=== PATIENT | male | born 1995 | race Caucasian/White ===

== ENCOUNTER 2021-04-11 20:16 | Inpatient (IN) | payer MEDICAID ==
[2021-04-11] MEDS ORDERED: Sodium Chloride 0.9% 10 ML Syringe FLUSH PRN (21:28)
[2021-04-11] MEDS ORDERED: Sodium Chloride 0.9% 1,000 ML IV SCH (21:30)
--- NOTE | 2021-04-11 22:36 | EDM.PDOC ---
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 The lesion started yesterday morning with a small area of redness and by yesterday evening was the size of about 4 cm x 2 cm with a central area raised. The patient reports he had a tick in this area of his leg a week earlier. The outlined the area of redness last evening and by this morning it had expanded to twice the area and started to develop black le sions in the middle worrisome for MRSA. They were seen in the clinic and started on doxycycline 100 mg twice daily for 14 days and initiated therapy but in that time to now the lesion continues to worsen with increased redness, tenderness, induration, and ever spreading dark vesicular lesions arising from the center of the redness. This is quite worrisome for MRSA versus Jovana's gangrene. The patient has been febrile with a temperature of 101.5 F and has had chills. 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 - Related Data Allergies Allergy/AdvReac Type Severity Reaction Status Date / Time No Known Allergies Allergy Verified 04/11/21 20:43 Home Meds: Home Meds Doxycycline Monohydrate [Mondoxyne Nl] 100 mg PO BID 04/11/21 [History] Past Medical History HEENT History: Reports: Impaired Vision - Infectious Disease History Infectious Disease History: Reports: Novel Coronavirus Social & Family History - Tobacco Use Tobacco Use Status *Q: Never Tobacco User ED ROS GENERAL - Review of Systems Review Of Systems: See Below Constitutional: Reports: Fever, Chills HEENT: Reports: No Symptoms Respiratory: Reports: No Symptoms Cardiovascular: Reports: No Symptoms Endocrine: Reports: No Symptoms GI/Abdominal: Reports: No Symptoms : Reports: No Symptoms Musculoskeletal: Reports: Joint Pain (Couple joints are now aching) Skin: Reports: Erythema, Lesions (Large erythematous lesions on the inner right thigh that have a central necrotic looking core worrisome for MRSA or Jovana's gangrene), Other (Patient reports that there may have been a tick attached to this area a week earlier.) Neurological: Reports: No Symptoms Psychiatric: Reports: No Symptoms Hematologic/Lymphatic: Reports: No Symptoms Immunologic: Reports: No Symptoms ED EXAM, SKIN/RASH Exam: See Below Exam Limited By: No Limitations General Appearance: Alert, Anxious, Mild Distress Eye Exam: Bilateral Eye: EOMI, PERRL Head: Atraumatic, Normocephalic Neck: Normal Inspection, Supple, Non-Tender, Full Range of Motion. No: Lymphadenopathy (R), Lymphadenopathy (L) Respiratory/Chest: No Respiratory Distress, Lungs Clear, Normal Breath Sounds Cardiovascular: Normal Peripheral Pulses, Regular Rate, Rhythm, No Murmur Extremities: Normal Inspection, Normal Range of Motion, Normal Capillary Refill Neurological: Alert, Oriented, Normal Cognition, No Motor/Sensory Deficits Skin: Erythema (Rapidly expanding area of erythema on the inner right thigh that has quadrupled in size in the last 24 hours. The area is indurated, hot, tender, the center of the lesions have a necrotic appearing core worrisome for either MRSA or Jovana's gangrene.), Increased Warmth Location, Skin: Lower Extremity, Right Characteristics: Maculopapular, Vesicular, Erythematous, Necrotic Associated features: Warmth, Tenderness, Swelling, Induration, Inflammation Lymphatic: No Adenopathy Course - Vital Signs Last Recorded V/S: Last Vital Signs Temp 38.6 C H 04/11/21 21:58 Pulse 92 04/11/21 21:56 Resp 17 04/11/21 21:56 BP 124/78 04/11/21 21:56 Pulse Ox 99 04/11/21 21:56 - Orders/Labs/Meds Orders: Active Orders 24 hr Category Date Time Status BABESIA MICROTI ANTIBODY PANEL Urgent Lab 04/11/21 21:37 Received CULTURE BLOOD [BC] Urgent Lab 04/11/21 21:37 Received CULTURE BLOOD [BC] Urgent Lab 04/11/21 21:46 Received HUMAN GRANULOCYTIC ANGELA-HGE Urgent Lab 04/11/21 21:37 Received LYME ANTIBODIES IGG/IGM [CHEM] Stat Lab 04/11/21 21:37 Received Sodium Chloride 0.9% [Normal Saline] 1,000 ml Med 04/11/21 21:30 Active IV ASDIRECTED Sodium Chloride 0.9% [Saline Flush] Med 04/11/21 21:28 Active 10 ml FLUSH ASDIRECTED PRN Vancomycin 1.5 gm Med 04/11/21 21:30 Active Sodium Chloride 0.9% [Normal Saline] 250 ml IV ONETIME Blood Culture x2 Reflex Set [OM.PC] Urgent Oth 04/11/21 21:29 Ordered Saline Lock Insert [OM.PC] Routine Oth 04/11/21 21:28 Ordered Medication Orders Sodium Chloride (Normal Saline) 1,000 mls @ 999 mls/hr IV ASDIRECTED RADHA Last Admin: 04/11/21 21:53 Dose: 999 mls/hr Documented by: DAMION Vancomycin HCl 1.5 gm/ Sodium (Chloride) 250 mls @ 150 mls/hr IV ONETIME STA Stop: 04/11/21 23:09 Last Admin: 04/11/21 22:20 Dose: 150 mls/hr Documented by: DAMION Sodium Chloride (Sodium Chloride 0.9% 10 Ml Syringe) 10 ml FLUSH ASDIRECTED PRN PRN Reason: Keep Vein Open Last Admin: 04/11/21 21:53 Dose: 10 ml Documented by: DAMION Labs: Laboratory Tests 04/11/21 04/11/21 04/11/21 Range/Units 21:37 21:37 21:37 WBC 9.2 (4.5-11.0) K/uL RBC 4.62 (4.30-5.90) M/uL Hgb 14.4 (12.0-15.0) g/dL Hct 41.7 (40.0-54.0) % MCV 90 (80-98) fL MCH 31 (27-31) pg MCHC 35 (32-36) % Plt Count 211 (150-400) K/uL Neut % (Auto) 74.7 H (36-66) % Lymph % (Auto) 11.2 L (24-44) % [place] % (Auto) 13.8 H (2-6) % Eos % (Auto) 0.1 L (2-4) % Baso % (Auto) 0.2 (0-1) % Sodium 140 (140-148) mmol/L Potassium 3.8 (3.6-5.2) mmol/L Chloride 102 (100-108) mmol/L Carbon Dioxide 26 (21-32) mmol/L Anion Gap 11.9 (5.0-14.0) mmol/L BUN 12 (7-18) mg/dL Creatinine 1.1 (0.8-1.3) mg/dL Est Cr Clr Drug Dosing 109.34 mL/min Estimated GFR (MDRD) > 60 (>60) Glucose 90 (74-106) mg/dL Lactic Acid 1.1 (0.4-2.0) mmol/L Calcium 8.8 (8.5-10.1) mg/dL Total Bilirubin 0.8 (0.2-1.0) mg/dL AST 25 (15-37) U/L ALT 34 (12-78) U/L Alkaline Phosphatase 74 (46-116) U/L C-Reactive Protein 2.17 H (0.0-0.3) mg/dL Total Protein 7.5 (6.4-8.2) g/dL Albumin 4.1 (3.4-5.0) g/dL Globulin 3.4 (2.3-3.5) g/dL Albumin/Globulin Ratio 1.2 (1.2-2.2) Meds: Medications Generic Name Dose Route Start Last Admin Trade Name Freq PRN Reason Stop Dose Admin Sodium Chloride 1,000 mls @ 999 mls/hr 04/11/21 21:30 04/11/21 21:53 Normal Saline IV 999 mls/hr ASDIRECTED RADHA Administration Vancomycin HCl 1.5 gm/ Sodium 250 mls @ 150 mls/hr 04/11/21 21:30 04/11/21 22:20 Chloride IV 04/11/21 23:09 150 mls/hr ONETIME STA Administration Sodium Chloride 10 ml 04/11/21 21:28 04/11/21 21:53 Sodium Chloride 0.9% 10 Ml Syringe FLUSH 10 ml ASDIRECTED PRN Administration Keep Vein Open - Re-Assessments/Exams Free Text/Narrative Re-Assessment/Exam: 04/11/21 22:56 viewed the patient's labs showing a normal CBC with a leukocyte count of 9.2. His comprehensive metabolic panel is normal with the exception of a creatinine of 1.1. His CRP is elevated at 2.17 and his venous lactate is 1.1. Because of the rapidly expanding lesion on the inner thigh, we initiated vancomycin 1500 mg IV and meropenem 1 g IV. We will admit the patient for close observation of this wound and continued IV antibiotics given the rapid expanding size of the lesion. I do have a tick panel still pending as well as blood cultures. I discussed the case with Samara Pedro CNP who has agreed to admit the patient for further care. Patient and his are also in agreement with this plan. Departure - Departure Time of Disposition: 22:58 Disposition: Admitted As Inpatient 67 Clinical Impression: Cellulitis of right thigh, Multiple-resistant Staphylococcus aureus infection - Discharge Information Referrals: Yumi Scherer MD [Primary Care Provider] - Forms: ED Department Discharge Sepsis Event Note (ED) - Evaluation Sepsis Screening Result: Possible Sepsis Risk - Focused Exam Vital Signs: Vital Signs Temp Pulse Resp BP Pulse Ox 04/11/21 21:58 38.6 C H 04/11/21 21:56 92 17 124/78 99 04/11/21 20:46 38.6 C H 108 H 22 H 135/69 100 04/11/21 20:36 38.6 C H 108 H 22 H 135/69 100 - Problem List & Annotations (1) Cellulitis of right thigh SNOMED Code(s): 00333695847276228 Code(s): L03.115 - CELLULITIS OF RIGHT LOWER LIMB Status: Acute Priority: Medium Current Visit: Yes (2) Multiple-resistant Staphylococcus aureus infection SNOMED Code(s): 828234598 Code(s): B95.7 - OTH STAPHYLOCOCCUS THE CAUSE OF DISEASES CLASSD [id number] Status: Acute Priority: Medium Current Visit: Yes - Problem List Review Problem List Initiated/Reviewed/Updated: Yes - My Orders Last 24 Hours: My Active Orders 04/11/21 21:28 Sodium Chloride 0.9% [Saline Flush] 10 ml FLUSH ASDIRECTED PRN Saline Lock Insert [OM.PC] Routine 04/11/21 21:29 Blood Culture x2 Reflex Set [OM.PC] Urgent 04/11/21 21:30 Sodium Chloride 0.9% [Normal Saline] 1,000 ml IV ASDIRECTED Vancomycin 1.5 gm Sodium Chloride 0.9% [Normal Saline] 250 ml IV ONETIME 04/11/21 21:37 BABESIA MICROTI ANTIBODY PANEL Urgent CULTURE BLOOD [BC] Urgent HUMAN GRANULOCYTIC ANGELA-HGE Urgent LYME ANTIBODIES IGG/IGM [CHEM] Stat 04/11/21 21:46 CULTURE BLOOD [BC] Urgent - Assessment/Plan Last 24 Hours: My Active Orders 04/11/21 21:28 Sodium Chloride 0.9% [Saline Flush] 10 ml FLUSH ASDIRECTED PRN Saline Lock Insert [OM.PC] Routine 04/11/21 21:29 Blood Culture x2 Reflex Set [OM.PC] Urgent 04/11/21 21:30 Sodium Chloride 0.9% [Normal Saline] 1,000 ml IV ASDIRECTED Vancomycin 1.5 gm Sodium Chloride 0.9% [Normal Saline] 250 ml IV ONETIME 04/11/21 21:37 BABESIA MICROTI ANTIBODY PANEL Urgent CULTURE BLOOD [BC] Urgent HUMAN GRANULOCYTIC ANGELA-HGE Urgent LYME ANTIBODIES IGG/IGM [CHEM] Stat 04/11/21 21:46 CULTURE BLOOD [BC] Urgent
[2021-04-11] MEDS ORDERED: Meropenem 1 GM in Sodium Chloride 0.9% 100 ML IV ONE (22:59)
--- NOTE | 2021-04-11 23:24 | PCM.HP.2 ---
H&P History of Present Illness - General Date of Service: 04/11/21 Admit Problem/Dx: Admission Diagnosis/Problem Admission Diagnosis/Problem Cellulitis of thigh Source of Information: Patient, Family () History Limitations: Reports: No Limitations - History of Present Illness Initial Comments - Free Text/Narative: Chief Complaint: skin infection right upper thigh is getting worse. 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 The lesion started yesterday morning with a small area of redness and by yesterday evening was the size of about 4 cm x 2 cm with a central area raised. The patient reports he had a tick in this area of his leg a week earlier. The outlined the area of redness last evening and by this morning it had expanded to twice the area and started to develop black lesions in the middle worrisome for MRSA. They were seen in the clinic and started on doxycycline 100 mg twice daily for 14 days and initiated therapy but in that time to now the lesion continues to worsen with increased redness, tenderness, induration, and ever spreading dark vesicular lesions arising from the center of the redness. This is quite worrisome for MRSA versus Jovana's gangrene. The patient has been febrile with a temperature of 101.5 F and has had chills. 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 Symptom Onset Date: 04/09/21 (48 hours of symptoms) Duration of Symptoms: Reports: Day(s):, Getting Worse Location: Reports: Lower Extremity, Right Quality: Reports: Ache, Dull Severity: Moderate Improves with: Reports: None Worsens with: Reports: None Context: Reports: Other (abscess cellulitis of right upper thigh) Associated Symptoms: Reports: Fever/Chills, Other (painful walking) - Related Data Allergies/Adverse Reactions: Allergies Allergy/AdvReac Type Severity Reaction Status Date / Time No Known Allergies Allergy Verified 04/11/21 20:43 Home Medications: Home Meds Doxycycline Monohydrate [Mondoxyne Nl] 100 mg PO BID 04/11/21 [History] Past Medical History HEENT History: Reports: Impaired Vision - Infectious Disease History Infectious Disease History: Reports: Novel Coronavirus Social & Family History - Tobacco Use Tobacco Use Status *Q: Never Tobacco User - Living Situation & Occupation Living situation: Reports: Occupation: Employed ( and 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 and 7 months, lives in [place], [place].) H&P Review of Systems - Review of Systems: Review Of Systems: See Below General: Reports: Fever, Chills, Malaise HEENT: Reports: No Symptoms Pulmonary: Reports: No Symptoms Cardiovascular: Reports: No Symptoms Gastrointestinal: Reports: No Symptoms Genitourinary: Reports: No Symptoms Musculoskeletal: Reports: Leg Pain (right upper thigh) Skin: Reports: Erythema, Wound, Change in Color Psychiatric: Reports: No Symptoms Neurological: Reports: No Symptoms Hematologic/Lymphatic: Reports: No Symptoms Immunologic: Reports: No Symptoms Exam - Exam Exam: See Below - Vital Signs Vital Signs: Last Vital Signs Temp 101.5 F H 04/11/21 21:58 Pulse 92 04/11/21 21:56 Resp 17 04/11/21 21:56 BP 124/78 04/11/21 21:56 Pulse Ox 99 04/11/21 21:56 Weight: 207 lb 3.752 oz - Exam Quality Assessment: DVT Prophylaxis General: Alert, Oriented, Cooperative, Mild Distress, Other (neat and well groomed. pleasant and polite, at bedside.) HEENT: PERRLA, Hearing Intact, Mucosa Moist & Pottery Addition, Nares Patent, Normal Nasal Septum, Posterior Pharynx Clear, Conjunctiva Clear, EOMI, EACs Clear, TMs Clear Neck: Supple, Trachea Midline, 2 Lungs: Clear to Auscultation, Normal Respiratory Effort Cardiovascular: Regular Rate, Regular Rhythm, Normal S1, Normal S2 GI/Abdominal Exam: Normal Bowel Sounds, Soft, Non-Tender, No Organomegaly, No Distention, No Abnormal Bruit, No Mass, Pelvis Stable (Male) Exam: No Hernia, Normal Inspection, Circumcised, Other (two testes equal shape and size, no tenderness noted, pea size lymph nodes noted to the bilateral groin. ) Rectal (Males) Exam: Deferred Back Exam: Normal Inspection, Full Range of Motion, NT Extremities: Leg Pain (right upper thigh with large red firm lesion with 2 black circular areas . area is marked this morning and has expanded about 2cm outside of the borders. not draining, pain with light palpation of abscess. ), Increased Warmth (right upper thight), Redness (right upper thight) Skin: Warm, Dry, Petechia (right upper thigh with large area of redness, pain, warm to touch. not draining at this time), Ecchymosis, Wound Neurological: Normal Speech. No: Normal Gait (limping into the ER) Neuro Extensive - Mental Status: Alert, Oriented x3, Normal Mood/Affect, Normal Cognition Psychiatric: Alert, Normal Affect, Normal Mood - Patient Data Lab Results Last 24 hrs: Laboratory Results - last 24 hr 04/11/21 04/11/21 04/11/21 Range/Units 21:37 21:37 21:37 WBC 9.2 (4.5-11.0) K/uL RBC 4.62 (4.30-5.90) M/uL Hgb 14.4 (12.0-15.0) g/dL Hct 41.7 (40.0-54.0) % MCV 90 (80-98) fL MCH 31 (27-31) pg MCHC 35 (32-36) % Plt Count 211 (150-400) K/uL Neut % (Auto) 74.7 H (36-66) % Lymph % (Auto) 11.2 L (24-44) % [place] % (Auto) 13.8 H (2-6) % Eos % (Auto) 0.1 L (2-4) % Baso % (Auto) 0.2 (0-1) % Sodium 140 (140-148) mmol/L Potassium 3.8 (3.6-5.2) mmol/L Chloride 102 (100-108) mmol/L Carbon Dioxide 26 (21-32) mmol/L Anion Gap 11.9 (5.0-14.0) mmol/L BUN 12 (7-18) mg/dL Creatinine 1.1 (0.8-1.3) mg/dL Est Cr Clr Drug Dosing 109.34 mL/min Estimated GFR (MDRD) > 60 (>60) Glucose 90 (74-106) mg/dL Lactic Acid (0.4-2.0) mmol/L Calcium 8.8 (8.5-10.1) mg/dL Total Bilirubin 0.8 (0.2-1.0) mg/dL AST 25 (15-37) U/L ALT 34 (12-78) U/L Alkaline Phosphatase 74 (46-116) U/L C-Reactive Protein 2.17 H (0.0-0.3) mg/dL Total Protein 7.5 (6.4-8.2) g/dL Albumin 4.1 (3.4-5.0) g/dL Globulin 3.4 (2.3-3.5) g/dL Albumin/Globulin Ratio 1.2 (1.2-2.2) Lyme Disease IgG Ab Negative (Negative) Lyme Disease IgM Ab Negative (Negative) 04/11/21 Range/Units 21:37 WBC (4.5-11.0) K/uL RBC (4.30-5.90) M/uL Hgb (12.0-15.0) g/dL Hct (40.0-54.0) % MCV (80-98) fL MCH (27-31) pg MCHC (32-36) % Plt Count (150-400) K/uL Neut % (Auto) (36-66) % Lymph % (Auto) (24-44) % [place] % (Auto) (2-6) % Eos % (Auto) (2-4) % Baso % (Auto) (0-1) % Sodium (140-148) mmol/L Potassium (3.6-5.2) mmol/L Chloride (100-108) mmol/L Carbon Dioxide (21-32) mmol/L Anion Gap (5.0-14.0) mmol/L BUN (7-18) mg/dL Creatinine (0.8-1.3) mg/dL Est Cr Clr Drug Dosing mL/min Estimated GFR (MDRD) (>60) Glucose (74-106) mg/dL Lactic Acid 1.1 (0.4-2.0) mmol/L Calcium (8.5-10.1) mg/dL Total Bilirubin (0.2-1.0) mg/dL AST (15-37) U/L ALT (12-78) U/L Alkaline Phosphatase (46-116) U/L C-Reactive Protein (0.0-0.3) mg/dL Total Protein (6.4-8.2) g/dL Albumin (3.4-5.0) g/dL Globulin (2.3-3.5) g/dL Albumin/Globulin Ratio (1.2-2.2) Lyme Disease IgG Ab (Negative) Lyme Disease IgM Ab (Negative) Result Diagrams: 04/11/21 21:37 04/11/21 21:37 Sepsis Event Note - Evaluation Sepsis Screening Result: Possible Sepsis Risk - Focused Exam Vital Signs: Vital Signs Temp Pulse Resp BP Pulse Ox 04/11/21 21:58 101.5 F H 04/11/21 21:56 92 17 124/78 99 04/11/21 20:46 101.5 F H 108 H 22 H 135/69 100 04/11/21 20:36 101.5 F H 108 H 22 H 135/69 100 - Problem List (1) Cellulitis of right thigh SNOMED Code(s): 77592249207827402 ICD Code: L03.115 - CELLULITIS OF RIGHT LOWER LIMB Status: Acute Current Visit: Yes Problem List Initiated/Reviewed/Updated: Yes Orders Last 24hrs: Active Orders 24 hr Category Date Time Status Patient Status Manage Transfer [TRANSFER] Routine ADT 04/11/21 23:06 Ordered BABESIA MICROTI ANTIBODY PANEL Urgent Lab 04/11/21 21:37 Received CULTURE BLOOD [BC] Urgent Lab 04/11/21 21:37 Received CULTURE BLOOD [BC] Urgent Lab 04/11/21 21:46 Received HUMAN GRANULOCYTIC ANGELA-HGE Urgent Lab 04/11/21 21:37 Received Meropenem [Merrem] 1 gm Med 04/11/21 22:59 Active Sodium Chloride 0.9% [Normal Saline] 100 ml IV ONETIME Sodium Chloride 0.9% [Normal Saline] 1,000 ml Med 04/11/21 21:30 Active IV ASDIRECTED Sodium Chloride 0.9% [Saline Flush] Med 04/11/21 21:28 Active 10 ml FLUSH ASDIRECTED PRN Blood Culture x2 Reflex Set [OM.PC] Urgent Oth 04/11/21 21:29 Ordered Saline Lock Insert [OM.PC] Routine Oth 04/11/21 21:28 Ordered Resuscitation Status Routine Resus Stat 04/11/21 23:08 Ordered Medication Orders Sodium Chloride (Normal Saline) 1,000 mls @ 999 mls/hr IV ASDIRECTED RADHA Last Admin: 04/11/21 21:53 Dose: 999 mls/hr Documented by: DAMION Meropenem 1 gm/ Sodium (Chloride) 100 mls @ 200 mls/hr IV ONETIME ONE Stop: 04/11/21 23:28 Sodium Chloride (Sodium Chloride 0.9% 10 Ml Syringe) 10 ml FLUSH ASDIRECTED PRN PRN Reason: Keep Vein Open Last Admin: 04/11/21 21:53 Dose: 10 ml Documented by: DAMION Assessment/Plan Comment:: Assessment/Plan Comment:: ASSESSMENT AND PLAN OF CARE Cellulits of the right upper thigh, fever of 101.5 This is a 26 year old male present to the ER with his , reports about 2 days ago noticed a red spot on the thigh-like a pink fingerprint- this quickly got red, painful, and expanded with two central black dot. He was seen in [facility] and started on Doxy - he took two doses but this evening he had fever, chills, increased in size of redness outside of borders. This is the first time this has happen. No other family members with similar rash. 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 ER workup shows WBC 9.2, hgb 14.4, hct 41.7, platelets 211, F Chemistry Na+ 140, K+ 3.58 cl 102, anion gap 11.9, BUN 12, Cr 1.1, glucose 90, blood cultures X2 pending. Lactic acid 1.1, CRP2.17 Medication given IV Vancomycin 1.5 gram, IV Meropenem, IV fluids in ER. Plan to hospital for further care and treatment. agree with plan of care. Cellulitis of right upper thigh- x 48 hours -Admit to [address] [place] [address] for further monitoring -IV Fluids for rehydration NS at 125 mL per hour -IV Antibiotic Vancomycin 1.5 gram IV every 12 hours -IV Antibiotic Meropenem 1 gram every 8 hours -Lovenox 40 mg subcut daily -oxygen to keep sats greater than 95% -Advise to notify nurses of any chest pain or other symptoms -blood cultures x2 pending -And a.m. labs: CBC, BMP, CRP Maintenance issues -Orders home meds: no chronic medication -Nutrition - regular -Haskins catheter -not indicated at this time -DVT: Lovenox 40 mg subcut -PPI; IV Protonix 40mg daily CODE STATUS: FULL Admission status: Admit to [address] [place] [address] Admission justification. This patient will be admitted for inpatient services and is medically appropriate meeting medical necessity for inpatient admission as outlined in my documentation. I reasonably expect the patient will require inpatient services that span. Time over 2 midnights. I reasonably expect this patient to be discharged or transferred within 96 hours after admission to the [facility]. Disposition: home with Primary care provider: [facility] Hospitalist: Dr. Davidson - Mortality Measure Prognosis:: Good
[2021-04-11] MEDS ORDERED: Docusate Sodium 100 MG Cap PO PRN (23:43)
[2021-04-11] MEDS ORDERED: Morphine 2 MG/ML SYRINGE IVPUSH PRN (23:43)
[2021-04-11] MEDS ORDERED: Ketorolac 30 MG/ML SDV IVPUSH PRN (23:43)
[2021-04-11] MEDS ORDERED: Ondansetron 4 MG Tab.DIS PO PRN (23:43)
[2021-04-11] MEDS ORDERED: Acetaminophen/HYDROcodone 325-5 MG Tab PO PRN (23:43)
[2021-04-11] MEDS ORDERED: Ondansetron 4 MG/2 ML SDV IV PRN (23:43)
[2021-04-11] MEDS ORDERED: Albuterol 0.083% 2.5 MG/3 ML Neb Soln NEB PRN (23:43)
[2021-04-11] MEDS: Acetaminophen 325 MG Tab PO PRN (23:57)
[2021-04-12] MEDS: Sodium Chloride 0.9% 1,000 ML IV SCH ×3 (00:32→20:13)
[2021-04-12] MEDS: Ibuprofen 800 MG Tab PO PRN (01:52)
[2021-04-12] MEDS ORDERED: Vancomycin 1 GM SDV ONE (06:02)
[2021-04-12] MEDS ORDERED: Pantoprazole 40 MG Tab.CR PO SCH (07:30)
[2021-04-12] MEDS ORDERED: Vancomycin 1 GM SDV IV SCH (07:30)
[2021-04-12] MEDS ORDERED: Enoxaparin 40 MG/0.4 ML Syringe SUBCUT SCH (09:00)
[2021-04-12] MEDS ORDERED: Pantoprazole 40 MG Vial IV SCH (09:00)
[2021-04-12] MEDS: Acetaminophen 325 MG Tab PO PRN ×2 (12:57→20:07)
--- NOTE | 2021-04-12 13:51 | US ---
Extremity Non Vascular Rt CLINICAL HISTORY: Cellulitis right thigh FINDINGS: Real-time images through the inner right thigh shows no mass or abnormal fluid collections. There is some swelling of the simultaneous tissue. There is some fluid in the intertices within the fat. IMPRESSION: Soft tissue edema No mass or abscess formation.
--- NOTE | 2021-04-12 14:15 | PCM.PN ---
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 He had failed a course of oral antibiotic therapy with doxycycline. He has experienced recurrent temperature elevation since admission but is otherwise feeling relatively well. Functional Status: Reports: Tolerating Diet, Urinating - Review of Systems General: Reports: Fever, Chills Pulmonary: Reports: No Symptoms Cardiovascular: Reports: No Symptoms Gastrointestinal: Reports: No Symptoms Skin: Reports: Other (Erythema and pain right medial thigh) - Patient Data Vitals - Most Recent: Last Vital Signs Temp 100.2 F 04/12/21 13:27 Pulse 79 04/12/21 11:41 Resp 16 04/12/21 11:41 BP 111/62 04/12/21 11:41 Pulse Ox 96 04/12/21 11:41 Weight - Most Recent: 207 lb 3.752 oz I&O - Last 24 Hours: Intake & Output 04/11/21 04/12/21 04/12/21 22:59 06:59 14:59 Intake Total 1828 Balance 1828 Lab Results Last 24 Hours: Laboratory Results - last 24 hr 04/11/21 04/11/21 04/11/21 Range/Units 21:37 21:37 21:37 WBC 9.2 (4.5-11.0) K/uL RBC 4.62 (4.30-5.90) M/uL Hgb 14.4 (12.0-15.0) g/dL Hct 41.7 (40.0-54.0) % MCV 90 (80-98) fL MCH 31 (27-31) pg MCHC 35 (32-36) % Plt Count 211 (150-400) K/uL Neut % (Auto) 74.7 H (36-66) % Lymph % (Auto) 11.2 L (24-44) % [place] % (Auto) 13.8 H (2-6) % Eos % (Auto) 0.1 L (2-4) % Baso % (Auto) 0.2 (0-1) % Sodium 140 (140-148) mmol/L Potassium 3.8 (3.6-5.2) mmol/L Chloride 102 (100-108) mmol/L Carbon Dioxide 26 (21-32) mmol/L Anion Gap 11.9 (5.0-14.0) mmol/L BUN 12 (7-18) mg/dL Creatinine 1.1 (0.8-1.3) mg/dL Est Cr Clr Drug Dosing 109.34 mL/min Estimated GFR (MDRD) > 60 (>60) Glucose 90 (74-106) mg/dL Lactic Acid (0.4-2.0) mmol/L Calcium 8.8 (8.5-10.1) mg/dL Total Bilirubin 0.8 (0.2-1.0) mg/dL AST 25 (15-37) U/L ALT 34 (12-78) U/L Alkaline Phosphatase 74 (46-116) U/L C-Reactive Protein 2.17 H (0.0-0.3) mg/dL Total Protein 7.5 (6.4-8.2) g/dL Albumin 4.1 (3.4-5.0) g/dL Globulin 3.4 (2.3-3.5) g/dL Albumin/Globulin Ratio 1.2 (1.2-2.2) Lyme Disease IgG Ab Negative (Negative) Lyme Disease IgM Ab Negative (Negative) 04/11/21 04/12/21 04/12/21 Range/Units 21:37 05:50 05:50 WBC 9.6 (4.5-11.0) K/uL RBC 4.24 L (4.30-5.90) M/uL Hgb 13.4 (12.0-15.0) g/dL Hct 39.3 L (40.0-54.0) % MCV 93 (80-98) fL MCH 32 H (27-31) pg MCHC 34 (32-36) % Plt Count 189 (150-400) K/uL Neut % (Auto) 75.8 H (36-66) % Lymph % (Auto) 12.5 L (24-44) % [place] % (Auto) 11.3 H (2-6) % Eos % (Auto) 0.3 L (2-4) % Baso % (Auto) 0.1 (0-1) % Sodium 143 (140-148) mmol/L Potassium 3.9 (3.6-5.2) mmol/L Chloride 107 (100-108) mmol/L Carbon Dioxide 26 (21-32) mmol/L Anion Gap 10.3 (5.0-14.0) mmol/L BUN 11 (7-18) mg/dL Creatinine 1.2 (0.8-1.3) mg/dL Est Cr Clr Drug Dosing 100.23 mL/min Estimated GFR (MDRD) > 60 (>60) Glucose 104 (74-106) mg/dL Lactic Acid 1.1 (0.4-2.0) mmol/L Calcium 8.1 L (8.5-10.1) mg/dL Total Bilirubin (0.2-1.0) mg/dL AST (15-37) U/L ALT (12-78) U/L Alkaline Phosphatase (46-116) U/L C-Reactive Protein 3.76 H (0.0-0.3) mg/dL Total Protein (6.4-8.2) g/dL Albumin (3.4-5.0) g/dL Globulin (2.3-3.5) g/dL Albumin/Globulin Ratio (1.2-2.2) Lyme Disease IgG Ab (Negative) Lyme Disease IgM Ab (Negative) Med Orders - Current: Current Medications Acetaminophen (Acetaminophen 325 Mg Tab) 650 mg PO Q4H PRN PRN Reason: Pain (Mild 1-3)/fever Last Admin: 04/12/21 12:57 Dose: 650 mg Documented by: Hydrocodone Bitart/Acetaminophen (Acetaminophen/Hydrocodone 325-5 Mg Tab) 1 tab PO Q4H PRN PRN Reason: Pain (moderate 4-6) Albuterol (Albuterol 0.083% 2.5 Mg/3 Ml Neb Soln) 2.5 mg NEB Q4H PRN PRN Reason: Shortness Of Breath/wheezing Docusate Sodium (Docusate Sodium 100 Mg Cap) 100 mg PO BID PRN PRN Reason: Constipation Enoxaparin Sodium (Enoxaparin 40 Mg/0.4 Ml Syringe) 40 mg SUBCUT DAILY [facility] Last Admin: 04/12/21 08:20 Dose: 40 mg Documented by: Sodium Chloride (Normal Saline) 1,000 mls @ 125 mls/hr IV ASDIRECTED [facility] Last Admin: 04/12/21 12:08 Dose: 125 mls/hr Documented by: Vancomycin HCl 1.5 gm/ Sodium (Chloride) 250 mls @ 166.667 mls/hr IV Q8H [facility] Last Admin: 04/12/21 06:22 Dose: 166.667 mls/hr Documented by: Meropenem 1 gm/ Sodium (Chloride) 50 mls @ 100 mls/hr IV Q8H [facility] Last Admin: 04/12/21 13:45 Dose: 100 mls/hr Documented by: Ibuprofen (Ibuprofen 800 Mg Tab) 800 mg PO Q8H PRN PRN Reason: Fever Last Admin: 04/12/21 01:52 Dose: 800 mg Documented by: Morphine Sulfate (Morphine 2 Mg/Ml Syringe) 2 mg IVPUSH Q2H PRN PRN Reason: Pain (severe 7-10) Ondansetron HCl (Ondansetron 4 Mg Tab.Dis) 4 mg PO Q6H PRN PRN Reason: Nausea able to take PO Ondansetron HCl (Ondansetron 4 Mg/2 Ml Sdv) 4 mg IV Q4H PRN PRN Reason: Nausea/Vomiting Pantoprazole Sodium (Pantoprazole 40 Mg Tab.Cr) 40 mg PO ACBREAKFAST [facility] Last Admin: 04/12/21 08:20 Dose: 40 mg Documented by: Sodium Chloride (Sodium Chloride 0.9% 10 Ml Syringe) 10 ml FLUSH ASDIRECTED PRN PRN Reason: Keep Vein Open Last Admin: 04/11/21 21:53 Dose: 10 ml Documented by: Discontinued Medications Sodium Chloride (Normal Saline) 1,000 mls @ 999 mls/hr IV ASDIRECTED [facility] Last Admin: 04/11/21 21:53 Dose: 999 mls/hr Documented by: Vancomycin HCl 1.5 gm/ Sodium (Chloride) 250 mls @ 150 mls/hr IV ONETIME STA Stop: 04/11/21 23:09 Last Admin: 04/11/21 22:20 Dose: 150 mls/hr Documented by: Meropenem 1 gm/ Sodium (Chloride) 100 mls @ 200 mls/hr IV ONETIME ONE Stop: 04/11/21 23:28 Last Admin: 04/12/21 00:34 Dose: 200 mls/hr Documented by: Meropenem 1 gm/ Sodium (Chloride) 50 mls @ 100 mls/hr IV Q8H [facility] Last Admin: 04/12/21 05:28 Dose: 100 mls/hr Documented by: Vancomycin HCl 1.5 gm/ Sodium (Chloride) 250 mls @ 166.667 mls/hr IV Q12H [facility] Ketorolac Tromethamine (Ketorolac 30 Mg/Ml Sdv) 30 mg IVPUSH Q6H PRN PRN Reason: Pain (moderate 4-6) Vancomycin HCl (Vancomycin 1 Gm Sdv) 0 gm IV .PHARMACY TO DOSE RADHA Stop: 04/12/21 07:31 - Exam General: Alert, Oriented, Cooperative, Mild Distress Lungs: Clear to Auscultation, Normal Respiratory Effort Cardiovascular: Regular Rate, Regular Rhythm, No Murmurs GI/Abdominal Exam: Soft, Non-Tender, No Organomegaly, No Distention Skin: Other (Erythema, pain, and induration right medial thigh) - Patient Data Lab Results Last 24 hrs: Laboratory Results - last 24 hr 04/11/21 04/11/21 04/11/21 Range/Units 21:37 21:37 21:37 WBC 9.2 (4.5-11.0) K/uL RBC 4.62 (4.30-5.90) M/uL Hgb 14.4 (12.0-15.0) g/dL Hct 41.7 (40.0-54.0) % MCV 90 (80-98) fL MCH 31 (27-31) pg MCHC 35 (32-36) % Plt Count 211 (150-400) K/uL Neut % (Auto) 74.7 H (36-66) % Lymph % (Auto) 11.2 L (24-44) % [place] % (Auto) 13.8 H (2-6) % Eos % (Auto) 0.1 L (2-4) % Baso % (Auto) 0.2 (0-1) % Sodium 140 (140-148) mmol/L Potassium 3.8 (3.6-5.2) mmol/L Chloride 102 (100-108) mmol/L Carbon Dioxide 26 (21-32) mmol/L Anion Gap 11.9 (5.0-14.0) mmol/L BUN 12 (7-18) mg/dL Creatinine 1.1 (0.8-1.3) mg/dL Est Cr Clr Drug Dosing 109.34 mL/min Estimated GFR (MDRD) > 60 (>60) Glucose 90 (74-106) mg/dL Lactic Acid (0.4-2.0) mmol/L Calcium 8.8 (8.5-10.1) mg/dL Total Bilirubin 0.8 (0.2-1.0) mg/dL AST 25 (15-37) U/L ALT 34 (12-78) U/L Alkaline Phosphatase 74 (46-116) U/L C-Reactive Protein 2.17 H (0.0-0.3) mg/dL Total Protein 7.5 (6.4-8.2) g/dL Albumin 4.1 (3.4-5.0) g/dL Globulin 3.4 (2.3-3.5) g/dL Albumin/Globulin Ratio 1.2 (1.2-2.2) Lyme Disease IgG Ab Negative (Negative) Lyme Disease IgM Ab Negative (Negative) 04/11/21 04/12/21 04/12/21 Range/Units 21:37 05:50 05:50 WBC 9.6 (4.5-11.0) K/uL RBC 4.24 L (4.30-5.90) M/uL Hgb 13.4 (12.0-15.0) g/dL Hct 39.3 L (40.0-54.0) % MCV 93 (80-98) fL MCH 32 H (27-31) pg MCHC 34 (32-36) % Plt Count 189 (150-400) K/uL Neut % (Auto) 75.8 H (36-66) % Lymph % (Auto) 12.5 L (24-44) % [place] % (Auto) 11.3 H (2-6) % Eos % (Auto) 0.3 L (2-4) % Baso % (Auto) 0.1 (0-1) % Sodium 143 (140-148) mmol/L Potassium 3.9 (3.6-5.2) mmol/L Chloride 107 (100-108) mmol/L Carbon Dioxide 26 (21-32) mmol/L Anion Gap 10.3 (5.0-14.0) mmol/L BUN 11 (7-18) mg/dL Creatinine 1.2 (0.8-1.3) mg/dL Est Cr Clr Drug Dosing 100.23 mL/min Estimated GFR (MDRD) > 60 (>60) Glucose 104 (74-106) mg/dL Lactic Acid 1.1 (0.4-2.0) mmol/L Calcium 8.1 L (8.5-10.1) mg/dL Total Bilirubin (0.2-1.0) mg/dL AST (15-37) U/L ALT (12-78) U/L Alkaline Phosphatase (46-116) U/L C-Reactive Protein 3.76 H (0.0-0.3) mg/dL Total Protein (6.4-8.2) g/dL Albumin (3.4-5.0) g/dL Globulin (2.3-3.5) g/dL Albumin/Globulin Ratio (1.2-2.2) Lyme Disease IgG Ab (Negative) Lyme Disease IgM Ab (Negative) Result Diagrams: 04/12/21 05:50 04/12/21 05:50 Sepsis Event Note - Evaluation Sepsis Screening Result: No Definite Risk - Focused Exam Vital Signs: Vital Signs Temp Temp Temp Pulse Resp BP Pulse Ox 04/12/21 13:27 100.2 F 04/12/21 12:58 101.2 F H 04/12/21 12:57 101.2 F H 04/12/21 11:41 100.2 F 79 16 111/62 96 04/12/21 07:50 98.1 F 84 16 109/60 97 04/12/21 05:30 99.1 F 81 16 95/46 L 96 04/12/21 02:52 99.1 F - Problem List Review Problem List Initiated/Reviewed/Updated: Yes - My Orders Last 24 Hours: My Active Orders 04/13/21 13:30 VANCOMYCIN TROUGH [CHEM] Timed - Plan Plan:: ASSESSMENT AND PLAN Cellulitis of right upper thigh-mild progression since admission with recurrent temperature elevations. On exam there is induration -Ultrasound of the thigh to evaluate for underlying abscess -IV Fluids for rehydration NS at 125 mL per hour -IV Antibiotic Vancomycin 1.5 gram IV every 12 hours -IV Antibiotic Meropenem 1 gram every 8 hours -blood cultures x2 pending Maintenance issues -Nutrition - regular -Haskins catheter -not indicated at this time -DVT: Not indicated -PPI; not indicated CODE STATUS: FULL Admission status: Admit to [address] [place] [address]. This patient will be admitted for inpatient services and is medically appropriate meeting medical necessity for inpatient admission as outlined in my documentation. I reasonably expect the patient will require inpatient services that span. Time over 2 midnights. I reasonably expect this patient to be discharged or transferred within 96 hours after admission to the critical access hospital. Disposition: home with Primary care provider: [facility] Hospitalist: Dr. Davidson
--- NOTE | 2021-04-13 11:11 | PCM.PN ---
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 He has experienced recurrent temperature elevations although lower than they had been previously. Area of cellulitis appears to have expanded mildly outside previous borders. Continues to have firm area in the center of this consistent with abscess although ultrasound showed no obvious fluid collection. There is some drainage from one of the necrotic areas. He has remained hemodynamically stable. Functional Status: Reports: Tolerating Diet, Urinating - Review of Systems General: Reports: Fever, Chills Pulmonary: Reports: No Symptoms Cardiovascular: Reports: No Symptoms Gastrointestinal: Reports: No Symptoms Skin: Reports: Other (Persistent erythema right thigh) - Patient Data Vitals - Most Recent: Last Vital Signs Temp 98.6 F 04/13/21 10:45 Pulse 79 04/13/21 10:45 Resp 16 04/13/21 10:45 BP 111/65 04/13/21 10:45 Pulse Ox 97 04/13/21 10:45 Weight - Most Recent: 207 lb 3.752 oz I&O - Last 24 Hours: Intake & Output 04/12/21 04/13/21 04/13/21 22:59 06:59 14:59 Intake Total 2273 2060 Balance 2273 2060 Abhijeet Results Last 24 Hours: Microbiology 04/11/21 21:46 Aerobic Blood Culture - Preliminary Blood - Arm, Left NO GROWTH AFTER 1 DAY Anaerobic Blood Culture - Preliminary NO GROWTH AFTER 1 DAY 04/11/21 21:37 Aerobic Blood Culture - Preliminary Blood - Arm, Right NO GROWTH AFTER 1 DAY Anaerobic Blood Culture - Preliminary NO GROWTH AFTER 1 DAY Med Orders - Current: Current Medications Acetaminophen (Acetaminophen 325 Mg Tab) 650 mg PO Q4H PRN PRN Reason: Pain (Mild 1-3)/fever Last Admin: 04/12/21 20:07 Dose: 650 mg Documented by: Hydrocodone Bitart/Acetaminophen (Acetaminophen/Hydrocodone 325-5 Mg Tab) 1 tab PO Q4H PRN PRN Reason: Pain (moderate 4-6) Albuterol (Albuterol 0.083% 2.5 Mg/3 Ml Neb Soln) 2.5 mg NEB Q4H PRN PRN Reason: Shortness Of Breath/wheezing Docusate Sodium (Docusate Sodium 100 Mg Cap) 100 mg PO BID PRN PRN Reason: Constipation Vancomycin HCl 1.5 gm/ Sodium (Chloride) 250 mls @ 166.667 mls/hr IV Q8H [facility] Last Admin: 04/13/21 06:17 Dose: 166.667 mls/hr Documented by: Meropenem 1 gm/ Sodium (Chloride) 50 mls @ 100 mls/hr IV Q8H [facility] Last Admin: 04/13/21 05:38 Dose: 100 mls/hr Documented by: Sodium Chloride (Normal Saline) 1,000 mls @ 75 mls/hr IV ASDIRECTED [facility] Ibuprofen (Ibuprofen 800 Mg Tab) 800 mg PO Q8H PRN PRN Reason: Fever Last Admin: 04/12/21 01:52 Dose: 800 mg Documented by: Morphine Sulfate (Morphine 2 Mg/Ml Syringe) 2 mg IVPUSH Q2H PRN PRN Reason: Pain (severe 7-10) Ondansetron HCl (Ondansetron 4 Mg Tab.Dis) 4 mg PO Q6H PRN PRN Reason: Nausea able to take PO Ondansetron HCl (Ondansetron 4 Mg/2 Ml Sdv) 4 mg IV Q4H PRN PRN Reason: Nausea/Vomiting Sodium Chloride (Sodium Chloride 0.9% 10 Ml Syringe) 10 ml FLUSH ASDIRECTED PRN PRN Reason: Keep Vein Open Last Admin: 04/11/21 21:53 Dose: 10 ml Documented by: Discontinued Medications Enoxaparin Sodium (Enoxaparin 40 Mg/0.4 Ml Syringe) 40 mg SUBCUT DAILY [facility] Last Admin: 04/12/21 08:20 Dose: 40 mg Documented by: Sodium Chloride (Normal Saline) 1,000 mls @ 999 mls/hr IV ASDIRECTED [facility] Last Admin: 04/11/21 21:53 Dose: 999 mls/hr Documented by: Vancomycin HCl 1.5 gm/ Sodium (Chloride) 250 mls @ 150 mls/hr IV ONETIME STA Stop: 04/11/21 23:09 Last Admin: 04/11/21 22:20 Dose: 150 mls/hr Documented by: Meropenem 1 gm/ Sodium (Chloride) 100 mls @ 200 mls/hr IV ONETIME ONE Stop: 04/11/21 23:28 Last Admin: 04/12/21 00:34 Dose: 200 mls/hr Documented by: Meropenem 1 gm/ Sodium (Chloride) 50 mls @ 100 mls/hr IV Q8H [facility] Last Admin: 04/12/21 05:28 Dose: 100 mls/hr Documented by: Sodium Chloride (Normal Saline) 1,000 mls @ 125 mls/hr IV ASDIRECTED [facility] Last Admin: 04/12/21 20:13 Dose: 125 mls/hr Documented by: Vancomycin HCl 1.5 gm/ Sodium (Chloride) 250 mls @ 166.667 mls/hr IV Q12H [facility] Ketorolac Tromethamine (Ketorolac 30 Mg/Ml Sdv) 30 mg IVPUSH Q6H PRN PRN Reason: Pain (moderate 4-6) Pantoprazole Sodium (Pantoprazole 40 Mg Tab.Cr) 40 mg PO ACBREAKFAST [facility] Last Admin: 04/12/21 08:20 Dose: 40 mg Documented by: Vancomycin HCl (Vancomycin 1 Gm Sdv) 0 gm IV .PHARMACY TO DOSE [facility] Stop: 04/12/21 07:31 - Exam General: Alert, Oriented, Cooperative, Mild Distress Lungs: Clear to Auscultation, Normal Respiratory Effort Cardiovascular: Regular Rate, Regular Rhythm, No Murmurs GI/Abdominal Exam: Soft, Non-Tender, No Organomegaly, No Distention Skin: Other (Erythema right medial thigh, small amount of drainage, 3 x 1-1/2 inch area in the center which is firm to palpation) - Patient Data Result Diagrams: 04/12/21 05:50 04/12/21 05:50 Abhijeet Results Last 24 hrs: Microbiology 04/11/21 21:46 Aerobic Blood Culture - Preliminary Blood - Arm, Left NO GROWTH AFTER 1 DAY Anaerobic Blood Culture - Preliminary NO GROWTH AFTER 1 DAY 04/11/21 21:37 Aerobic Blood Culture - Preliminary Blood - Arm, Right NO GROWTH AFTER 1 DAY Anaerobic Blood Culture - Preliminary NO GROWTH AFTER 1 DAY Sepsis Event Note - Evaluation Sepsis Screening Result: No Definite Risk - Focused Exam Vital Signs: Vital Signs Temp Temp Pulse Resp BP Pulse Ox 04/13/21 10:45 98.6 F 79 16 111/65 97 04/13/21 07:00 98.5 F 86 16 116/59 L 96 04/13/21 03:45 99.7 F 88 16 102/56 L 97 04/12/21 23:43 97 - Problem List Review Problem List Initiated/Reviewed/Updated: Yes - My Orders Last 24 Hours: My Active Orders 04/13/21 11:02 Convert IV to Saline Lock [OM.PC] Routine 04/13/21 11:03 Consult to Physician [CONS] Routine 04/13/21 11:04 Notify Provider Consults [RC] ASDIRECTED 04/13/21 13:30 VANCOMYCIN TROUGH [CHEM] Routine 04/14/21 00:01 Sodium Chloride 0.9% @ 75 MLS/HR(1000ml) Sodium Chloride 0.9% [Normal Saline] 1,000 ml IV ASDIRECTED 04/14/21 05:00 BASIC METABOLIC PANEL,BMP [CHEM] Timed CBC WITH AUTO DIFF [HEME] Timed 04/14/21 Breakfast Nothing per Oral After Midnight Diet [DIET] - Plan Plan:: ASSESSMENT AND PLAN Cellulitis of right upper thigh-mild progression since admission with recurrent temperature elevations. On exam there is induration, ultrasound yesterday showed no obvious fluid collection. Areas expanded mildly over the last 24 hours and it has started to drain small amount of fluid from one of the necrotic areas. -Saline lock, resume IV fluids at midnight -IV Antibiotic Vancomycin 1.5 gram IV every 12 hours -IV Antibiotic Meropenem 1 gram every 8 hours -Consult Dr. Hwang for I&D in a.m. -N.p.o. after midnight -blood cultures x2 pending Maintenance issues -Nutrition - regular -Haskins catheter -not indicated at this time -DVT: Not indicated -PPI; not indicated CODE STATUS: FULL Admission status: Admit to [address] [place] [address]. This patient will be admitted for inpatient services and is medically appropriate meeting medical necessity for inpatient admission as outlined in my documentation. I reasonably expect the patient will require inpatient services that span. Time over 2 midnights. I reasonably expect this patient to be discharged or t ransferred within 96 hours after admission to the critical access [facility]. Disposition: home with Primary care provider: [facility] Hospitalist: Dr. Davidson
[2021-04-13] MEDS: Sodium Chloride 0.9% 1,000 ML IV SCH (13:33)
[2021-04-13] MEDS: Vancomycin 1.8 GM in Sodium Chloride 0.9% 250 ML IV SCH ×2 (14:33→22:50)
[2021-04-14] MEDS ORDERED: Sodium Chloride 0.9% 1,000 ML IV SCH (00:01)
[2021-04-14] MEDS: Vancomycin 1.8 GM in Sodium Chloride 0.9% 250 ML IV SCH (06:28)
[2021-04-14] MEDS ORDERED: fentaNYL 100 MCG/2 ML SDV ONE (08:54)
[2021-04-14] MEDS ORDERED: Midazolam 1 MG/ML 2 ML SDV ONE (08:54)
[2021-04-14] MEDS ORDERED: Propofol 200 MG/20 ML SDV ONE (08:54)
[2021-04-14 09:43] LABS: CORONAVIRUS COVID-19 NAA NEGATIVE (NEGATIVE)
--- NOTE | 2021-04-14 09:45 | PCM.PN ---
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 Area of cellulitis has expanded outside of previous area noted yesterday. He has been seen and evaluated by Dr. Hwang and will be taken to the operating room for I&D of probable abscess. Functional Status: Reports: Ambulating, Urinating - Review of Systems General: Reports: No Symptoms Pulmonary: Reports: No Symptoms Cardiovascular: Reports: No Symptoms Gastrointestinal: Reports: No Symptoms Skin: Reports: Other (Persistent erythema right inner thigh) - Patient Data Vitals - Most Recent: Last Vital Signs Temp 96.4 F L 04/14/21 07:45 Pulse 70 04/14/21 07:45 Resp 16 04/14/21 07:45 BP 111/59 L 04/14/21 07:45 Pulse Ox 97 04/14/21 07:45 Weight - Most Recent: 207 lb 3.752 oz I&O - Last 24 Hours: Intake & Output 04/13/21 04/14/21 04/14/21 22:59 06:59 14:59 Intake Total 540 731 Balance 540 731 Lab Results Last 24 Hours: Laboratory Results - last 24 hr 04/13/21 04/14/21 04/14/21 Range/Units 13:21 05:45 05:45 WBC 7.9 (4.5-11.0) K/uL RBC 4.27 L (4.30-5.90) M/uL Hgb 13.3 (12.0-15.0) g/dL Hct 39.2 L (40.0-54.0) % MCV 92 (80-98) fL MCH 31 (27-31) pg MCHC 34 (32-36) % Plt Count 200 (150-400) K/uL Neut % (Auto) 67.2 H (36-66) % Lymph % (Auto) 19.1 L (24-44) % Mcmullen % (Auto) 12.1 H (2-6) % Eos % (Auto) 1.3 L (2-4) % Baso % (Auto) 0.3 (0-1) % Sodium 144 (140-148) mmol/L Potassium 4.4 (3.6-5.2) mmol/L Chloride 107 (100-108) mmol/L Carbon Dioxide 30 (21-32) mmol/L Anion Gap 7.3 (5.0-14.0) mmol/L BUN 6 L (7-18) mg/dL Creatinine 0.9 (0.8-1.3) mg/dL Est Cr Clr Drug Dosing 133.09 mL/min Estimated GFR (MDRD) > 60 (>60) Glucose 101 (74-106) mg/dL Calcium 8.6 (8.5-10.1) mg/dL Vancomycin Trough 8.6 L (10.0-20.0) ug/mL Abhijeet Results Last 24 Hours: Microbiology 04/11/21 21:37 Aerobic Blood Culture - Preliminary Blood - Arm, Right NO GROWTH AFTER 2 DAYS Anaerobic Blood Culture - Preliminary NO GROWTH AFTER 2 DAYS 04/11/21 21:46 Aerobic Blood Culture - Preliminary Blood - Arm, Left NO GROWTH AFTER 2 DAYS Anaerobic Blood Culture - Preliminary NO GROWTH AFTER 2 DAYS Med Orders - Current: Current Medications Acetaminophen (Acetaminophen 325 Mg Tab) 650 mg PO Q4H PRN PRN Reason: Pain (Mild 1-3)/fever Last Admin: 04/12/21 20:07 Dose: 650 mg Documented by: Hydrocodone Bitart/Acetaminophen (Acetaminophen/Hydrocodone 325-5 Mg Tab) 1 tab PO Q4H PRN PRN Reason: Pain (moderate 4-6) Albuterol (Albuterol 0.083% 2.5 Mg/3 Ml Neb Soln) 2.5 mg NEB Q4H PRN PRN Reason: Shortness Of Breath/wheezing Docusate Sodium (Docusate Sodium 100 Mg Cap) 100 mg PO BID PRN PRN Reason: Constipation Meropenem 1 gm/ Sodium (Chloride) 50 mls @ 100 mls/hr IV Q8H [facility] Last Admin: 04/14/21 05:38 Dose: 100 mls/hr Documented by: Sodium Chloride (Normal Saline) 1,000 mls @ 75 mls/hr IV ASDIRECTED [facility] Vancomycin HCl 1.8 gm/ Sodium (Chloride) 250 mls @ 150 mls/hr IV Q8H [facility] Last Admin: 04/14/21 06:28 Dose: 150 mls/hr Documented by: Ibuprofen (Ibuprofen 800 Mg Tab) 800 mg PO Q8H PRN PRN Reason: Fever Last Admin: 04/12/21 01:52 Dose: 800 mg Documented by: Morphine Sulfate (Morphine 2 Mg/Ml Syringe) 2 mg IVPUSH Q2H PRN PRN Reason: Pain (severe 7-10) Ondansetron HCl (Ondansetron 4 Mg Tab.Dis) 4 mg PO Q6H PRN PRN Reason: Nausea able to take PO Ondansetron HCl (Ondansetron 4 Mg/2 Ml Sdv) 4 mg IV Q4H PRN PRN Reason: Nausea/Vomiting Sodium Chloride (Sodium Chloride 0.9% 10 Ml Syringe) 10 ml FLUSH ASDIRECTED PRN PRN Reason: Keep Vein Open Last Admin: 04/11/21 21:53 Dose: 10 ml Documented by: Discontinued Medications Enoxaparin Sodium (Enoxaparin 40 Mg/0.4 Ml Syringe) 40 mg SUBCUT DAILY [facility] Last Admin: 04/12/21 08:20 Dose: 40 mg Documented by: Fentanyl (Fentanyl 100 Mcg/2 Ml Sdv) Confirm Administered Dose 100 mcg .ROUTE .ST-MED ONE Stop: 04/14/21 08:55 Sodium Chloride (Normal Saline) 1,000 mls @ 999 mls/hr IV ASDIRECTED [facility] Last Admin: 04/11/21 21:53 Dose: 999 mls/hr Documented by: Vancomycin HCl 1.5 gm/ Sodium (Chloride) 250 mls @ 150 mls/hr IV ONETIME STA Stop: 04/11/21 23:09 Last Admin: 04/11/21 22:20 Dose: 150 mls/hr Documented by: Meropenem 1 gm/ Sodium (Chloride) 100 mls @ 200 mls/hr IV ONETIME ONE Stop: 04/11/21 23:28 Last Admin: 04/12/21 00:34 Dose: 200 mls/hr Documented by: Meropenem 1 gm/ Sodium (Chloride) 50 mls @ 100 mls/hr IV Q8H [facility] Last Admin: 04/12/21 05:28 Dose: 100 mls/hr Documented by: Sodium Chloride (Normal Saline) 1,000 mls @ 125 mls/hr IV ASDIRECTED [facility] Last Admin: 04/13/21 13:33 Dose: 125 mls/hr Documented by: Vancomycin HCl 1.5 gm/ Sodium (Chloride) 250 mls @ 166.667 mls/hr IV Q12H [facility] Vancomycin HCl 1.5 gm/ Sodium (Chloride) 250 mls @ 166.667 mls/hr IV Q8H [facility] Last Admin: 04/13/21 06:17 Dose: 166.667 mls/hr Documented by: Ketorolac Tromethamine (Ketorolac 30 Mg/Ml Sdv) 30 mg IVPUSH Q6H PRN PRN Reason: Pain (moderate 4-6) Midazolam HCl (Midazolam 1 Mg/Ml 2 Ml Sdv) Confirm Administered Dose 2 mg .ROUTE .STK-MED ONE Stop: 04/14/21 08:55 Pantoprazole Sodium (Pantoprazole 40 Mg Tab.Cr) 40 mg PO ACBREAKFAST [facility] Last Admin: 04/12/21 08:20 Dose: 40 mg Documented by: Propofol (Propofol 200 Mg/20 Ml Sdv) Confirm Administered Dose 200 mg .ROUTE .STK-MED ONE Stop: 04/14/21 08:55 Vancomycin HCl (Vancomycin 1 Gm Sdv) 0 gm IV .PHARMACY TO DOSE [facility] Stop: 04/12/21 07:31 - Exam General: Alert, Oriented, Cooperative, Mild Distress Lungs: Clear to Auscultation, Normal Respiratory Effort Cardiovascular: Regular Rate, Regular Rhythm, No Murmurs GI/Abdominal Exam: Soft, Non-Tender, No Organomegaly, No Distention Wound/Incisions: Other (Erythema right inner thigh) - Patient Data Lab Results Last 24 hrs: Laboratory Results - last 24 hr 04/13/21 04/14/21 04/14/21 Range/Units 13:21 05:45 05:45 WBC 7.9 (4.5-11.0) K/uL RBC 4.27 L (4.30-5.90) M/uL Hgb 13.3 (12.0-15.0) g/dL Hct 39.2 L (40.0-54.0) % MCV 92 (80-98) fL MCH 31 (27-31) pg MCHC 34 (32-36) % Plt Count 200 (150-400) K/uL Neut % (Auto) 67.2 H (36-66) % Lymph % (Auto) 19.1 L (24-44) % Mcmullen % (Auto) 12.1 H (2-6) % Eos % (Auto) 1.3 L (2-4) % Baso % (Auto) 0.3 (0-1) % Sodium 144 (140-148) mmol/L Potassium 4.4 (3.6-5.2) mmol/L Chloride 107 (100-108) mmol/L Carbon Dioxide 30 (21-32) mmol/L Anion Gap 7.3 (5.0-14.0) mmol/L BUN 6 L (7-18) mg/dL Creatinine 0.9 (0.8-1.3) mg/dL Est Cr Clr Drug Dosing 133.09 mL/min Estimated GFR (MDRD) > 60 (>60) Glucose 101 (74-106) mg/dL Calcium 8.6 (8.5-10.1) mg/dL Vancomycin Trough 8.6 L (10.0-20.0) ug/mL Result Diagrams: 04/14/21 05:45 04/14/21 05:45 Abhijeet Results Last 24 hrs: Microbiology 04/11/21 21:37 Aerobic Blood Culture - Preliminary Blood - Arm, Right NO GROWTH AFTER 2 DAYS Anaerobic Blood Culture - Preliminary NO GROWTH AFTER 2 DAYS 04/11/21 21:46 Aerobic Blood Culture - Preliminary Blood - Arm, Left NO GROWTH AFTER 2 DAYS Anaerobic Blood Culture - Preliminary NO GROWTH AFTER 2 DAYS Sepsis Event Note - Evaluation Sepsis Screening Result: No Definite Risk - Focused Exam Vital Signs: Vital Signs Temp Temp Pulse Resp BP Pulse Ox 04/14/21 07:45 96.4 F L 70 16 111/59 L 97 04/14/21 05:40 96 F L 75 16 111/49 L 97 04/13/21 23:00 99 04/13/21 22:43 96.5 F L 85 16 124/76 99 - Problem List Review Problem List Initiated/Reviewed/Updated: Yes - My Orders Last 24 Hours: My Active Orders 04/13/21 11:02 Convert IV to Saline Lock [OM.PC] Routine 04/13/21 11:03 Consult to Physician [CONS] Routine 04/13/21 11:04 Notify Provider Consults [RC] ASDIRECTED 04/13/21 11:11 CULTURE WOUND + SMEAR [RM] Stat 04/14/21 00:01 Sodium Chloride 0.9% [Normal Saline] 1,000 ml IV ASDIRECTED 04/14/21 Breakfast Nothing per Oral After Midnight Diet [DIET] - Plan Plan:: ASSESSMENT AND PLAN Cellulitis of right upper thigh-mild progression since admission with recurrent temperature elevations. On exam there is induration, plan for I&D in the operating room this morning -Saline lock -IV Antibiotic Vancomycin 1.5 gram IV every 12 hours -IV Antibiotic Meropenem 1 gram every 8 hours -Surgical follow-up per Dr. Hwang -blood cultures x2 pending Maintenance issues -Nutrition - regular -Haskins catheter -not indicated at this time -DVT: Not indicated -PPI; not indicated CODE STATUS: FULL Admission status: Admit to [address] [place] [address] justification. This patient will be admitted for inpatient services and is medically appropriate meeting medical necessity for inpatient admission as outlined in my documentation. I reasonably expect the patient will require inpatient services that span. Time over 2 midnights. I reasonably expect this patient to be discharged or transferred within 96 hours after admission to the critical access hospital. Disposition: home with Primary care provider: [facility] Hospitalist: Dr. Davidson
[2021-04-14] MEDS ORDERED: Bupivacaine 0.5% 50 ML MDV ONE (10:06)
[2021-04-14] MEDS ORDERED: Lidocaine 1% with EPINEPHrine 1:100,000 50 ML MDV ONE (10:06)
[2021-04-14] MEDS ORDERED: Lactated Ringers 1,000 ML ONE (10:29)
[2021-04-14] MEDS: Ibuprofen 800 MG Tab PO PRN (11:55)
[2021-04-14] MEDS: Linezolid 600 MG in Premix Bag 1 BAG IV SCH ×2 (13:44→23:37)
[2021-04-15] MEDS: Ibuprofen 800 MG Tab PO PRN (08:10)
[2021-04-15] MEDS: Linezolid 600 MG in Premix Bag 1 BAG IV SCH (13:59)
[2021-04-16 15:09] LABS: HGE IGG TITER Negative (Neg:<1:64); HGE IGM TITER Negative (Neg:<1:20)
--- NOTE | 2021-04-17 08:38 | PCM.DCSUM1 ---
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 He had initially noticed the lesion on 04/10 and at that time it was just a small red blanca. Over the following 24 hours however the lesion increased in size quickly, became very red, and was mildly tender. He went to an outpatient clinic and was started on doxycycline which he took that evening. The redness continued to increase and he started to develop a dusky color at the center of the wound with vesicles that were concerning so he came to the hospital. He had admitted to having a tick bite in that region in the past however nothing that he knew of recently. While in the hospital he was started on vancomycin and meropenem for concern for cellulitis versus a venomous spider bite which would be very uncommon for the [facility] area however we have had a substantially warmer summer this year. he did not have a fever after the day of admission. On 04/14 he was taken for debridement of the lesion and cultures were taken with which eventually were negative. Shortly after the debridement there was an obvious reduction in redness and size of the lesion. He received 4 total days of antibiotics. 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 The surgeon and I agree that this would be safe. He was told that if the redness increased he developed any pain, fevers or chills that he should return to the nearest ER. Diagnosis: Stroke: No Modified Hernando Scale: No Symptoms at All Modified Hernando Scale Score: 0 - Discharge Data Discharge Date: 04/15/21 Discharge Disposition: Home, Self-Care 01 Condition: Good - Referral to Home Health Primary Care Physician: Yuim Scherer MD - Discharge Diagnosis/Problem(s) (1) Spider bite, venomous SNOMED Code(s): 546353417, [id number], [id number] ICD Code: T63.301A - TOXIC EFFECT OF UNSP SPIDER VENOM, ACCIDENTAL, INIT Status: Acute - Patient Summary/Data Consults: Consultations 04/13/21 11:03 Consult to Physician [CONS] Routine Consulting Provider: Jaiden,Arie Courtesy Call Completed to Consulting Physician: Yes Reason for Consult: Cellulitis and possible abscess right thigh - Patient Instructions Diet: Usual Diet as Tolerated Driving: May Drive Today Showering/Bathing: May Shower Wound/Incision Care: Keep Operative Site/Wound Site Clean and Dry Other/Special Instructions: If you have increased redness, swelling, pain, or fever please come to the Emergency Department - Discharge Plan Patient Handouts: Cellulitis, Adult, [id number] Referrals: Yumi Scherer MD [Primary Care Provider] - - Discharge Summary/Plan Comment DC Time >30 min.: Yes - General Info Date of Service: 04/15/21 Admission Dx/Problem (Free Text: Admission Diagnosis/Problem Admission Diagnosis/Problem Spider Bite of Right Thigh with Necrosis Subjective Update: Jeanie Perry side was feeling significantly better and the redness had decreased substantially in 24 hours after debridement. 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 He stated understanding on how to care for the wound. We did talk about giving an additional days dose of doxycycline to go home on however he had completed 4 days of IV broad-spectrum antibiotics and showed improvement with debridement making spider bite significantly more likely. He was advised advised on signs and symptoms to look out for and to come back to the ER if any of the symptoms such as fever, pain, or increased redness or swelling did occur. Functional Status: Reports: Pain Controlled, Tolerating Diet, Ambulating, Urinating - Review of Systems General: Reports: No Symptoms. Denies: Fever, Chills HEENT: Reports: No Symptoms. Denies: Headaches, Sinus Congestion Pulmonary: Reports: No Symptoms. Denies: Shortness of Breath, Cough Cardiovascular: Reports: No Symptoms. Denies: Chest Pain, Palpitations Gastrointestinal: Reports: No Symptoms. Denies: Abdominal Pain, Constipation, Diarrhea, Nausea, Vomiting Genitourinary: Reports: No Symptoms. Denies: Dysuria Musculoskeletal: Reports: No Symptoms Skin: Reports: Other (Mild redness around the site of debridement without pain or obvious edema) Neurological: Reports: No Symptoms Psychiatric: Reports: No Symptoms - Patient Data Vitals - Most Recent: Last Vital Signs Temp 98.0 F 04/15/21 10:50 Pulse 78 04/15/21 14:45 Resp 16 04/15/21 14:45 BP 107/62 04/15/21 14:45 Pulse Ox 99 04/15/21 14:45 Weight - Most Recent: 207 lb 3.752 oz Lab Results - Last 24 hrs: Laboratory Results - last 24 hr 04/11/21 Range/Units 21:37 HGE IgG Antibody Negative (Neg:<1:64) HGE IgM Antibody Negative (Neg:<1:20) STONEY Results - Last 24 hrs: Microbiology 04/14/21 11:09 Gram Stain - Final Leg, Right Wound Culture - Final NO GROWTH AFTER 3 DAYS Anaerobic Culture - Final NO GROWTH AFTER 3 DAYS 04/11/21 21:37 Aerobic Blood Culture - Final Blood - Arm, Right NO GROWTH AFTER 5 DAYS Anaerobic Blood Culture - Final NO GROWTH AFTER 5 DAYS 04/11/21 21:46 Aerobic Blood Culture - Final Blood - Arm, Left NO GROWTH AFTER 5 DAYS Anaerobic Blood Culture - Final NO GROWTH AFTER 5 DAYS Med Orders - Current: Current Medications Discontinued Medications Acetaminophen (Acetaminophen 325 Mg Tab) 650 mg PO Q4H PRN PRN Reason: Pain (Mild 1-3)/fever Last Admin: 04/12/21 20:07 Dose: 650 mg Documented by: Hydrocodone Bitart/Acetaminophen (Acetaminophen/Hydrocodone 325-5 Mg Tab) 1 tab PO Q4H PRN PRN Reason: Pain (moderate 4-6) Albuterol (Albuterol 0.083% 2.5 Mg/3 Ml Neb Soln) 2.5 mg NEB Q4H PRN PRN Reason: Shortness Of Breath/wheezing Bupivacaine HCl (Bupivacaine 0.5% 50 Ml Mdv) Confirm Administered Dose 50 ml .ROUTE .STK-MED ONE Stop: 04/14/21 10:07 Last Admin: 04/14/21 10:30 Dose: 15 ml Documented by: Docusate Sodium (Docusate Sodium 100 Mg Cap) 100 mg PO BID PRN PRN Reason: Constipation Enoxaparin Sodium (Enoxaparin 40 Mg/0.4 Ml Syringe) 40 mg SUBCUT DAILY [facility] Last Admin: 04/12/21 08:20 Dose: 40 mg Documented by: Fentanyl (Fentanyl 100 Mcg/2 Ml Sdv) Confirm Administered Dose 100 mcg .ROUTE .STK-MED ONE Stop: 04/14/21 08:55 Sodium Chloride (Normal Saline) 1,000 mls @ 999 mls/hr IV ASDIRECTED [facility] Last Admin: 04/11/21 21:53 Dose: 999 mls/hr Documented by: Vancomycin HCl 1.5 gm/ Sodium (Chloride) 250 mls @ 150 mls/hr IV ONETIME STA Stop: 04/11/21 23:09 Last Admin: 04/11/21 22:20 Dose: 150 mls/hr Documented by: Meropenem 1 gm/ Sodium (Chloride) 100 mls @ 200 mls/hr IV ONETIME ONE Stop: 04/11/21 23:28 Last Admin: 04/12/21 00:34 Dose: 200 mls/hr Documented by: Meropenem 1 gm/ Sodium (Chloride) 50 mls @ 100 mls/hr IV Q8H [facility] Last Admin: 04/12/21 05:28 Dose: 100 mls/hr Documented by: Sodium Chloride (Normal Saline) 1,000 mls @ 125 mls/hr IV ASDIRECTED [facility] Last Admin: 04/13/21 13:33 Dose: 125 mls/hr Documented by: Vancomycin HCl 1.5 gm/ Sodium (Chloride) 250 mls @ 166.667 mls/hr IV Q12H [facility] Vancomycin HCl 1.5 gm/ Sodium (Chloride) 250 mls @ 166.667 mls/hr IV Q8H [facility] Last Admin: 04/13/21 06:17 Dose: 166.667 mls/hr Documented by: Meropenem 1 gm/ Sodium (Chloride) 50 mls @ 100 mls/hr IV Q8H [facility] Last Admin: 04/15/21 06:10 Dose: 100 mls/hr Documented by: Sodium Chloride (Normal Saline) 1,000 mls @ 75 mls/hr IV ASDIRECTED [facility] Vancomycin HCl 1.8 gm/ Sodium (Chloride) 250 mls @ 150 mls/hr IV Q8H [facility] Last Admin: 04/14/21 06:28 Dose: 150 mls/hr Documented by: Lactated Ringer's (Ringers, Lactated) Confirm Administered Dose 1,000 mls @ as directed .ROUTE .STK-MED ONE Stop: 04/14/21 10:30 Linezolid 600 mg/ Premix 300 mls @ 300 mls/hr IV Q12H [facility] Last Admin: 04/15/21 13:59 Dose: Not Given Documented by: Ibuprofen (Ibuprofen 800 Mg Tab) 800 mg PO Q8H PRN PRN Reason: Fever Last Admin: 04/15/21 08:10 Dose: 800 mg Documented by: Ketorolac Tromethamine (Ketorolac 30 Mg/Ml Sdv) 30 mg IVPUSH Q6H PRN PRN Reason: Pain (moderate 4-6) Lidocaine/Epinephrine (Lidocaine 1% With Epinephrine 1:100,000 50 Ml Mdv) Confirm Administered Dose 50 ml .ROUTE .STK-MED ONE Stop: 04/14/21 10:07 Last Admin: 04/14/21 10:30 Dose: 15 ml Documented by: Midazolam HCl (Midazolam 1 Mg/Ml 2 Ml Sdv) Confirm Administered Dose 2 mg .ROUTE .STK-MED ONE Stop: 04/14/21 08:55 Morphine Sulfate (Morphine 2 Mg/Ml Syringe) 2 mg IVPUSH Q2H PRN PRN Reason: Pain (severe 7-10) Ondansetron HCl (Ondansetron 4 Mg Tab.Dis) 4 mg PO Q6H PRN PRN Reason: Nausea able to take PO Ondansetron HCl (Ondansetron 4 Mg/2 Ml Sdv) 4 mg IV Q4H PRN PRN Reason: Nausea/Vomiting Pantoprazole Sodium (Pantoprazole 40 Mg Tab.Cr) 40 mg PO ACBREAKFAST [facility] Last Admin: 04/12/21 08:20 Dose: 40 mg Documented by: Propofol (Propofol 200 Mg/20 Ml Sdv) Confirm Administered Dose 200 mg .ROUTE .STK-MED ONE Stop: 04/14/21 08:55 Sodium Chloride (Sodium Chloride 0.9% 10 Ml Syringe) 10 ml FLUSH ASDIRECTED PRN PRN Reason: Keep Vein Open Last Admin: 04/11/21 21:53 Dose: 10 ml Documented by: Vancomycin HCl (Vancomycin 1 Gm Sdv) 0 gm IV .PHARMACY TO DOSE [facility] Stop: 04/12/21 07:31 - Exam General: Reports: Alert, Oriented, Cooperative, No Acute Distress HEENT: Reports: Pupils Equal, EOMI, Mucous Membr. Moist/[place] Lungs: Reports: Clear to Auscultation, Normal Respiratory Effort Cardiovascular: Reports: Regular Rate, Regular Rhythm GI/Abdominal Exam: Normal Bowel Sounds, Soft, Non-Tender, No Distention Extremities: Normal Inspection, Non-Tender, No Pedal Edema Skin: Reports: Warm, Dry, Intact Wound/Incisions: Reports: Dressing Dry and Intact, No Drainage, Erythema Improving Neurological: Reports: No New Focal Deficit Psy/Mental Status: Reports: Alert, Normal Affect, Normal Mood
[2021-04-18 17:13] LABS: BABESIA MICROTI IGG <1:10 (Neg:<1:10); BABESIA MICROTI IGM <1:10 (Neg:<1:10)
--- NOTE | 2021-05-16 13:22 | OR ---
DATE OF PROCEDURE: 05/15/2021 SURGEON: Arie Hwang MD PROCEDURE: Incision and drainage of abscess right thigh. COMPLICATION: None. DIGITAL ASSOCIATE MEDIA DIRECTOR: None. ANESTHESIA: MAC. RISKS: Risks, benefits, alternatives, and limitations including but not limited to infection, bleeding, and injury to associated structures were explained to the patient and he wished to proceed. PROCEDURE IN DETAIL: The patient was placed in supine position and was prepped and draped. This was anesthetized with 1% lidocaine for a total of 5 mL. A single ayad was created in the skin. A small amount of purulent material was noted. This was cultured. This was irrigated. Dressings were applied. The patient tolerated the procedure well. Arie Hwang MD /[id number]
== END 2021-04-15 16:14 | disposition home or self-care (01) | DRG 603 ==
LOC: JP.ED 20:16 → JP.MS 23:06
PROVIDERS: ADMIT Hospitalist; ATTEND Hospitalist
PROC: 0H9HXZZ Drainage of Right Upper Leg Skin, External Approach (ICD-10-PCS; principal; 2021-04-14)
DX: L03.115 Cellulitis of right lower limb (principal); T63.301A Toxic effect of unspecified spider venom, accidental (unintentional), initial encounter; L02.415 Cutaneous abscess of right lower limb; H54.7 Unspecified visual loss; Z86.19 Personal history of other infectious and parasitic diseases; Z20.822 Contact with and (suspected) exposure to COVID-19
CPT/HCPCS: 0241U; 36415; 76881-26-RT; 76881-RT; 80048; 80053; 80202; 83605; 85025; 86140; 86618; 86666; 86753; 87040; 87070; 87075; 87205; 96365; 99222; 99232; 99239; 99285; 99285-25; A9270-GY; J1650; J2020; J2185; J2250; J2704; J3010; J3370; J3490; J7030; J7050; J7120